=== PATIENT | female | born 1975 | race Two or more races ===

== ENCOUNTER 2024-11-01 11:55 | Day surgery (SDC) | payer MEDICAID, SELFPAY ==
[2024-10-26 13:23] LABS: HCG Qualitative,Urine Negative
[2024-10-31 15:48] VITALS: BMI 27.4
[2024-11-01] VITALS (14 sets, daily range): BP systolic 92–120; BP diastolic 55–88; PULSE 71–99; RESP 12–21; TEMP 36.5–36.6; O2SAT 96–100; BMI 27.0
[2024-11-01] MEDS: fentaNYL CIT INJ 50 mCg/ML AMP 2ML (ASD USE ONLY) IV (13:36)
[2024-11-01] MEDS: SODIUM CHLORIDE 0.9% 500 ML 500 ML 20 ML IV (13:36)
[2024-11-01] MEDS: MIDAZOLAM INJ 1 MG/ML VIAL 2 ML (ASD USE ONLY) 2 MG IV (13:38)
--- NOTE | 2024-11-01 14:25 | SUR.PHASEII ---
PT MORE AWAKE BUT STILL DROWSY, NO ACUTE DISTRESS NOTED.
--- NOTE | 2024-11-01 14:54 | SUR.PHASEII ---
PT FEELS BETTER AND HAS VERY MILD DIZZINESS. PT ABLE TO AMBULATE TO THE BATHROOM ON HER OWN WITH STANDBY ASSIST.
--- NOTE | 2024-11-01 16:46 | ESHP_ITS ---
RE: ARCENIO GÓMEZ : 1975 DATE OF ADMISSION: 11/01/2024 DATE OF SURGERY: 11/01/2024 HISTORY OF PRESENT ILLNESS: This patient was referred from [facility] from [place] by Rosendo Burns. She was recommended for screening colonoscopy. This 49-year-old female speaks only Romanian. The patient has been in good health and she denies any history of rectal bleeding or change in the bowel habits. She denies any history of colon cancer in the family. She is and has four children and has not had any surgery in the abdomen. She denies any major past medical history. Her medication consists of the following: MEDICATIONS: 1. Wellfleet 3000 mg capsule orally twice a day 2. Atorvastatin calcium 20 mg tablets once a day 3. Loratadine 10 mg tablets orally once a day REVIEW OF SYSTEMS: Essentially unremarkable. ALLERGIES: NONE. MENSTRUATION HISTORY: The patient has had no menstruation for the past 2 years. PAST HOSPITALIZATION: None. PHYSICAL EXAMINATION: GENERAL: Physical examination revealed a young female who appeared much younger than her stated age of 49. She is about 5 feet tall, weighing 122 pounds. HEENT: Examination of the head normal. Eyes, ears, nose, and throat were normal. NECK: Normal. CHEST: Revealed good breath sounds on both sides. BREASTS: Not examined. ABDOMEN: Showed some striae in the lower abdomen. Otherwise, no abnormality. RECTAL: Deferred pending colonoscope. IMPRESSION: 1. Encounter for screening malignant neoplasm. 2. Allergic rhinitis. 3. Hyperlipidemia. COURSE OF ACTION: I talked with the patient about the colonoscope. The procedure was explained to her in detail using the rental counter clerk and she is agreeable. DT: 15:22:24 TT: 16:45:00 Ref: [id number] - TID: [id number]
== END 2024-11-01 15:05 | disposition home or self-care (01) ==
PROVIDERS: PCP Family Medicine; Referring Provider Surgery; Visit Provider Surgery
PROC: 0DBE8ZX Excision of Large Intestine, Via Natural or Artificial Opening Endoscopic, Diagnostic (ICD-10-PCS; CPT 45380; principal; 2024-11-01 13:45)
DX: Z12.11 Encounter for screening for malignant neoplasm of colon (principal); E78.5 Hyperlipidemia, unspecified; J30.9 Allergic rhinitis, unspecified; D12.8 Benign neoplasm of rectum
CPT/HCPCS: 45385; 81025; A4217; A4649; J2250; J3010; J7040